=== PATIENT | female | born 1995 | race Caucasian/White ===

== ENCOUNTER 2018-11-21 17:40 | Emergency (ER) | payer OTHER, BC ==
--- NOTE | 2018-11-21 19:11 | EDM.PDOC ---
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 She states she was up against a metal fence when the horse reared up and struck her in the mid back either with his chest or his head. This caused her to be propelled into the metal fence and suffered blunt trauma to the upper anterior chest. She continues to have pain in her sternum and right upper ribs and mildly on the left upper ribs. Hurts mildly to take a deep breath. She does not feel subjectively short of breath. She denies any injuries to her head or neck. Denies any significant pain to her back. Denies any abdominal pain nausea or vomiting. Injury occurred in the workplace at about 1630 hrs. today. She states she had the wind knocked out of her and was able to walk away from the horse so as not to be injured again and then did sit down until she could assess how badly she was injured. Onset: Today Onset Date: 11/21/18 Onset Time: 16:30 Duration: Hour(s): Location: Reports: Chest (Upper back upper anterior chest and breast bone.), Back Quality: Reports: Ache Severity: Moderate Improves with: Reports: Rest Worsens with: Reports: Other, Movement Context: Reports: Trauma (Blunt trauma when she was either head butted her struck by the horse his chest and her upper back which propelled her into a metal fence with a bar striking her in the anterior upper chest. It certainly not the wind out of her.). Denies: Activity (Deep breathing makes it somewhat worse), Exercise, Lifting, Sick Contact Associated Symptoms: Reports: Chest Pain. Denies: Confusion, Cough, cough w sputum, Diaphoresis, Fever/Chills, Headaches, Loss of Appetite, Malaise, Nausea/ Vomiting, Rash, Seizure, Shortness of Breath, Syncope, Weakness Treatments CATEGORY ANALYST: Reports: Other (see below) (None.) Chest Pain Score (Numeric/FACES): 3 - Related Data Allergies Allergy/AdvReac Type Severity Reaction Status Date / Time Sulfa (Sulfonamide Allergy Hives Verified 11/21/18 18:12 Antibiotics) Home Meds: Home Meds Escitalopram [Lexapro] 15 mg PO DAILY 11/21/18 [History] Etanercept [Enbrel] 1 injection SQ ASDIRECTED 11/21/18 [History] Hydroxychloroquine [Plaquenil] 200 mg PO DAILY 11/21/18 [History] Norgestimate-Ethinyl Estradiol [Tri-Sprintec Tablet] 1 tab PO ASDIRECTED [History] Past Medical History HEENT History: Reports: Impaired Vision Cardiovascular History: Reports: None Respiratory History: Reports: Bronchitis, Recurrent Gastrointestinal History: Reports: None Genitourinary History: Reports: None GAG WRITER History: Reports: None Musculoskeletal History: Reports: Arthritis, RA Neurological History: Reports: None Psychiatric History: Reports: Depression Endocrine/Metabolic History: Reports: None Hematologic History: Reports: None Immunologic History: Reports: Immunosuppression Oncologic (Cancer) History: Reports: None Dermatologic History: Reports: None - Infectious Disease History Infectious Disease History: Reports: None - Past Surgical History HEENT Surgical History: Reports: None Social & Family History - Family History Family Medical History: Noncontributory - Tobacco Use Smoking Status *Q: Never Smoker - Caffeine Use Caffeine Use: Reports: Tea - Recreational Drug Use Recreational Drug Use: No - Living Situation & Occupation Living situation: Reports: Single Occupation: Employed Review of Systems - Review of Systems Review Of Systems: See Below Constitutional: Reports: No Symptoms Eyes: Reports: No Symptoms Ears: Reports: No Symptoms Nose: Reports: No Symptoms Mouth/Throat: Reports: No Symptoms Respiratory: Reports: Other (Anterior segments upper sternal pain and bilateral pain in her upper ribs both right and left side perhaps slightly worse on the right side as compared to the left. Some very mild pain in her upper thoracic spine). Denies: Shortness of Breath, Wheezing, Pleuritic Chest Pain, Cough, Sputum Cardiovascular: Reports: No Symptoms GI/Abdominal: Reports: No Symptoms Genitourinary: Reports: No Symptoms Musculoskeletal: Reports: Other (Patient has rheumatoid arthritis and is currently on Enbrel and Plaquenil.) Skin: Reports: No Symptoms Neurological: Reports: No Symptoms Psychiatric: Reports: No Symptoms ED EXAM, GENERAL - Physical Exam Exam: See Below Exam Limited By: No Limitations General Appearance: Alert, WD/WN, No Apparent Distress, Other (Vital signs show afebrile at 36.5. Pulse 58 in sinus. Respiratory to 16. BP 06/25/78 with a pulse ox of 100% on room air.) Throat/Mouth: Normal Inspection, Normal Lips, Normal Teeth, Normal Oropharynx, Other Head: Atraumatic, Normocephalic Neck: Normal Inspection, Supple, Non-Tender, Full Range of Motion. No: Lymphadenopathy (L), Lymphadenopathy (R) Respiratory/Chest: No Respiratory Distress, Lungs Clear, Normal Breath Sounds, No Accessory Muscle Use, Other ( is very tender to palpation manubrial sternal joint of the) Cardiovascular: Normal Peripheral Pulses ( sternum and upper ribs 2-5 bilaterally. There are no obvious contusions abrasions or ecchymoses at this time. Ankush is equal bilaterally with no respiratory distress.), Regular Rate, Rhythm, No Edema, No Gallop, No Murmur, No Rub Peripheral Pulses: 3+: Carotid (L), Carotid (R), Radial (L), Radial (R), Posterior Tibial (L), Posterior Tibial (R), Dorsalis Pedis (L), Dorsalis Pedis ( R) GI/Abdominal: Normal Bowel Sounds, Soft, Non-Tender, No Organomegaly, No Abnormal Bruit, No Mass, Pelvis Stable Back Exam: Normal Inspection, Full Range of Motion, Vertebral Tenderness (Very minimal tenderness of the upper thoracic vertebra for 5 and 6 with no malalignment or contusions abrasions to the back.). No: CVA Tenderness (L), CVA Tenderness (R) Extremities: Normal Inspection, Normal Range of Motion, Non-Tender Neurological: Alert, Oriented, CN II-XII Intact, Normal Cognition, Normal Gait Psychiatric: Normal Affect, Normal Mood Skin Exam: Warm, Dry, Intact, Normal Color, No Rash Course - Vital Signs Last Recorded V/S: Last Vital Signs Temp 36.5 C 11/21/18 18:16 Pulse 58 L 11/21/18 18:16 Resp 16 11/21/18 18:16 BP 113/79 11/21/18 18:16 Pulse Ox 100 11/21/18 18:16 - Orders/Labs/Meds Labs: Laboratory Tests 11/21/18 11/21/18 Range/Units 18:26 18:28 Urine Color Yellow (Yellow) Urine Appearance Clear (Clear) Urine pH 6.0 (5.0-8.0) Ur Specific [place] 1.020 (1.005-1.030) Urine Protein Negative (Negative) Urine Glucose (UA) Negative (Negative) Urine Ketones Negative (Negative) Urine Occult Blood Negative (Negative) Urine Nitrite Negative (Negative) Urine Bilirubin Negative (Negative) Urine Urobilinogen 0.2 (0.2-1.0) Ur Leukocyte Esterase Trace H (Negative) Urine RBC 0-5 (0-5) /hpf Urine WBC Not seen (0-5) /hpf Ur Squamous Epith Cells 10-20 H (0-5) /hpf Urine Bacteria Not seen (FEW) /hpf Urine Mucus Not seen (FEW) /hpf Urine HCG, Qual Negative (NEGATIVE) - Radiology Interpretation Free Text/Narrative:: 23-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 She states a horse that she was working with [employer] up and she turned up against a metal fence and the horse struck her in the upper and mid back either with her head or chest. This propelled her into the fence which had a metal bar going across the upper aspect. It did not the wind out of her she was able to stagger away from the horse and then went down to the ground as she had the wind knocked out of her. She went to the [place] [facility] and was advised to come to the hospital for further evaluation as she was going to need x-rays or imaging. Examination reveals pain across the upper anterior chest particularly ribs 2-5 bilaterally and particularly in the mid aspect of the sternum over the manubrial sternal joint. No injuries identified to her thoracic spine although mild tenderness over the spinous processes of T4-T5 and T6 identified on exam without abrasions or contusions. No injuries to the lower thorax no subcutaneous emphysema. Good good air entry to both lung pena benign abdomen. Triage nurse to send a urine for testing although the patient is on control. Will be to CT her chest without contrast. This is so that I can see her sternum adequately. - Re-Assessments/Exams Free Text/Narrative Re-Assessment/Exam: 11/21/18 19;55: CT of the chest reveals multiple lymph nodes seen within both axillary regions which are felt to be within normal limits. Small amount of soft tissue density is seen within the superior mediastinum most likely representing residual thymic tissue. No adenopathy is seen within the mediastinum. Very slight atherosclerotic Desiccation is seen within the thoracic aorta. Lungs show no acute parenchymal changes. There is no pneumothorax or pleural effusion. There is a small nodule being seen within the right upper lung measuring 3.4 mm. Second small subpleural nodule noted within the right lung base measuring 3.8 mm in size. Bone window settings were reviewed which shows no discrete rib fractures or obvious sternal fractures. Overall my assessment I identified a undisplaced hairline fracture in the manubrium of the sternum. Is exactly where her pain is localized to. No abnormalities were detected on visualization of the thoracic spine patient reassured that she appears to have suffered a significant contusion to the sternum and likely a hairline undisplaced fracture of the manubrium. She will try to go to work although this is going to be more painful over the next couple of days particular with pushing, pulling, lifting activities. She didn't want anything for pain and will use Motrin as needed. Follow-up as needed. Of note in regards to the pulmonary nodule she is a nonsmoker and it may be related to her connective tissue disorder. Departure - Departure Time of Disposition: 19:51 Disposition: Home, Self-Care 01 Condition: Fair Clinical Impression: Blunt trauma to chest Qualifiers: Encounter type: initial encounter Qualified Code(s): S29.8XXA - Other specified injuries of thorax, initial encounter Fracture, sternum closed Qualifiers: Encounter type: initial encounter Sternal location: manubrium Qualified Code(s) : S22.21XA - Fracture of manubrium, initial encounter for closed fracture Contusion of chest wall Qualifiers: Encounter type: initial encounter Laterality: unspecified laterality Qualified Code(s): S20.219A - Contusion of unspecified front wall of thorax, initial encounter - Discharge Information *PRESCRIPTION DRUG MONITORING PROGRAM REVIEWED*: No *COPY OF PRESCRIPTION DRUG MONITORING REPORT IN PATIENT TERRANCE: No Instructions: Contusion, [id number], Sternal Fracture Referrals: Georgina Valeznuela GRAINING PRESS OPERATOR [Primary Care Provider] - Forms: ED Department Discharge, ED Return to Work/School Form Additional Instructions: Evaluation in the emergency room today in regards to work related injury. 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 This crushed you up against a metal fence and you therefore suffered blunt trauma to the anterior upper chest. Injury occurred about 1600 hrs. today. Examination reveals tenderness over the upper sternum and upper ribs bilaterally. No apparent injuries to the upper back neck or lower abdomen identified. CT chest was carried out and reveals a undisplaced hairline fracture of the upper aspect of your sternum her breast bone. No fractured ribs were identified. No injuries to the underlying lung were identified such as a pneumothorax or pulmonary contusion or bruised lung. Expect the sternum to be very tender for the next 14 days and then slowly improve over the next 6 weeks back to normal. He will have problems pushing and pulling due to use of the upper chest muscles. You may return to work tomorrow as long as you can protect this area from a lot of heavy lifting pushing or pulling activities for the next 3-4 weeks. Motrin 600 mg every 6 hours needed for pain relief.
--- NOTE | 2018-11-21 19:54 | CT ---
CT chest Technique: Multiple axial sections were obtained from above the lung apices inferiorly through the lung bases. Intravenous contrast not utilized. Comparison: No prior chest imaging. Findings: Multiple lymph nodes are seen within both axillary regions which are most likely within normal limits. Small amount of soft tissue density is seen within the superior mediastinum most likely representing residual thymic tissue. No adenopathy is seen within the mediastinum. Very slight atherosclerotic calcification is seen within the thoracic aorta. Lungs show no acute parenchymal change. There is a small nodule being seen within the right upper lung measuring about 3.4 mm. Second small subpleural nodule is noted within the right lung base measuring 3.8 mm in size. No additional nodule is seen within the chest. No pleural effusions or pneumothorax are seen. Bone window settings were reviewed which shows no discrete rib fracture. Impression: 1. 2 small nodules within the chest. If patient is a smoker, recommend repeat chest CT in one year. If patient is not a smoker, these can be ignored. 2. Other findings which are believed to be incidental as noted above. 3. Nothing acute is appreciated on noncontrast CT study of the chest. Diagnostic code #3
== END 2018-11-21 20:09 | disposition home or self-care (01) ==
LOC: JD.ED 17:40
DX: S22.21XA Fracture of manubrium, initial encounter for closed fracture (principal); Z88.2 Allergy status to sulfonamides; Z79.899 Other long term (current) drug therapy; F32.9 Major depressive disorder, single episode, unspecified; W55.12XA Struck by horse, initial encounter
CPT/HCPCS: 71250; 71250-26; 81001; 81025; 99284; 99284-25

== ENCOUNTER 2019-10-29 10:24 | Inpatient (IN) | payer BC ==
[~2019-10-29 10:24] MED LIST: Bupivacaine 0.25% 10 ML SDV ONE
[2019-10-29] MEDS ORDERED: Sodium Chloride 0.9% 10 ML Syringe FLUSH PRN (10:55)
[2019-10-29] MEDS ORDERED: Ondansetron 4 MG/2 ML SDV IVPUSH PRN (10:55)
[2019-10-29] MEDS ORDERED: Nalbuphine 10 MG/ML Syringe IVPUSH PRN (10:55)
[2019-10-29] MEDS ORDERED: Oxytocin/Lactated Ringers 10 UNIT/1,000 ML BAG IV SCH ×2 (11:00)
[2019-10-29] MEDS ORDERED: fentaNYL 100 MCG/2 ML SDV EPIDUR PRN (11:57)
[2019-10-29] MEDS ORDERED: Bupivacaine/fentaNYL/NS 100 ML Bag EPIDUR PRN (11:57)
[2019-10-29] MEDS ORDERED: diphenhydrAMINE 50 MG/ML SDV IVPUSH PRN (11:57)
[2019-10-29] MEDS ORDERED: ePHEDrine 50 MG/ML SDV IVPUSH PRN (11:57)
--- NOTE | 2019-10-29 12:12 | PCM.LDHP ---
L&D History of Present Illness - General Date of Service: 10/29/19 Admit Problem/Dx: Patient Status Order with Admit Dx/Problem 10/29/19 10:56 Patient Status [ADT] Routine Admission Diagnosis/Problem Admission Diagnosis/Problem 10/29/19 12:02 Shayy is a 24-year-old 1 para 0 white female who is presently at 38-3/7 weeks gestational age with an MARAH of 11/09/2019 who is admitted to labor and delivery with gross SROM in early labor. Source of Information: Patient History Limitations: Reports: No Limitations - History of Present Illness Introduction:: Shayy is a 24-year-old 1 para 0 white female who is presently at 38-3/7 weeks gestational age with an MARAH of 11/09/2019 who is admitted to labor and delivery with gross SROM in early labor.She reports the membranes ruptured this morning at approximately 0750 hrs. She came in to the clinic and saw Dipti martinez nurse practitioner and was diagnosed as having gross rupture membranes. She is not reporting any contractions at this time. Baby has been active. TRAFFIC ANALYSIS TECHNICIAN history: The patient is a 1 para 0. MARAH is 11/09/2019 as based upon an ultrasound done at 5 and 67 weeks gestational age is supported by 3 other ultrasounds done during the course of the . Patient had menarche at approximately age 12. Cycles every month. No control at the time of conception. Her LMP was 02/07/2019. She denies any STI's or abnormal Pap smears. course. Patient was first seen in very early on at 5 weeks and 6 days on 03/15/2019. Ultrasound was performed at that time to confirm viability and intrauterine location of the . Her MARAH was set at 2019. Patient seen on a very regular basis throughout the . Her weight gain was from 189-212.4 pounds for approximately a T3 pound increase. Her blood pressures have been normal. Her fundal height growth has been appropriate. She is group B strep negative. She has a history of MRSA infection but was MRSA culture negative end MRSA by PCR negative as evaluated in September 2019. She is on rheumatology medications including Enbrel for suppression. She is done well with these and has been receiving care from her plum packer during the course of . She has a history of depression. She was influenza B positive and was treated with Tamiflu in August 2019. She plans to breast-feed. laboratory testing shows her blood to be O+ with a negative MRI screening. First hemoglobin was 12.7 g/dL and platelets are 239,000. She is rubella immune. RPR is nonreactive. Urine culture was negative. Hepatitis B surface antigen and HIV assays were both negative. Her gonorrhea was negative. Second trimester hemoglobin was 11.9 g/dL and platelets were 252, 000. She had a normal diabetic screen at 101. Her group B strep screen was negative. Allergies: Sulfur which causes hives. Medications: 1. Hydroxychloroquine sulfate 200 mg by mouth daily 2. Tylenol 325 mg when necessary every 4 hours 3. Enbrel sure clinic 50 mg/mL subcutaneous 4. Folic acid 1 mg daily 5. vitamins 1 daily. Past medical history: 1. Rheumatoid arthritis 2. Abnormal Pap smear was normal on repeat. 3. Self allergies Past surgical history: 1. Surgery for deviated septum. 2. Cyst removed from her shoulder. Family history: One sister had a stillbirth at 20 weeks. Mother is alive and well as is her father. 3 brothers are alive and well. One sister is alive and well. Maternal grandmother is secondary to primary biliary cirrhosis. Paternal grandfather at age 87causes unknown. Paternal grandmother at age 100 from natural causes. Paternal grandfather at age 87. Cause unknown. There are no bleeding disorders, blood clotting disorders, history of cancer, anesthesia or asthma or -related issues noted in the family. Social history: Patient is . She lives in [place], [place]. She is a [employer]. She is a college graduate. Her 's name is Savage. She does not use any significant loss of alcohol, drugs or tobacco. Review of systems: In general patient has no complaints. Skin: Negative Lungs: No infectious symptoms or shortness of breath Cardiovascular: No chest pain or exercise intolerance Breasts: No lumps, changes in size, pain, dimpling, discharge or axillary or supraclavicular concerns. Changes associated with GI: Negative : Negative other than rupture membranes. Baby has been active. Musculoskeletal: Negative Neurological: Negative In general the patient is well-developed, well-nourished, pleasant female of stated age in no acute distress. On last evaluation in clinic blood pressure is 118/82. Weight was 212.4 pounds with a pregravid weight 189 pounds. Height is 5 feet 7. Prepregnancy body mass index is 30.5. Skin is warm dry without lesions. HEENT, neck and back within normal limits. Lungs are clear with good breath sounds in all lung pena. Cardiovascular exam shows regular and rhythm without murmurs. Breasts exam deferred having been done the first visit and found to be normal is not needed at this time. Abdomen is gravid with a fundal height of 38 cm. Baby in vertex presentation by Dipti Del Cid's Venkat maneuver evaluation.. Genital per digital exam done in clinic show cervix is 1 cm dilated 90% effaced , soft, posterior, -3 station. Baby in vertex presentation.. Extremities and neurological exam are grossly within normal limits. - Related Data Allergies/Adverse Reactions: Allergies Allergy/AdvReac Type Severity Reaction Status Date / Time Sulfa (Sulfonamide Allergy Hives Verified 11/21/18 18:12 Antibiotics) Home Medications: Home Meds Escitalopram [Lexapro] 15 mg PO DAILY 11/21/18 [History] Etanercept [Enbrel] 1 injection SQ ASDIRECTED 11/21/18 [History] Hydroxychloroquine [Plaquenil] 200 mg PO DAILY 11/21/18 [History] norgestimate-ethinyl estradioL [Tri-Sprintec Tablet] 1 tab PO ASDIRECTED [History] Past Medical History HEENT History: Reports: Impaired Vision Cardiovascular History: Reports: None Respiratory History: Reports: Bronchitis, Recurrent Gastrointestinal History: Reports: None Genitourinary History: Reports: None TRAFFIC ANALYSIS TECHNICIAN History: Reports: None Musculoskeletal History: Reports: Arthritis, RA Neurological History: Reports: None Psychiatric History: Reports: Depression Endocrine/Metabolic History: Reports: None Hematologic History: Reports: None Immunologic History: Reports: Immunosuppression Other Immunologic History: RA Oncologic (Cancer) History: Reports: None Dermatologic History: Reports: None - Infectious Disease History Infectious Disease History: Reports: None - Past Surgical History HEENT Surgical History: Reports: None Social & Family History - Family History Family Medical History: Noncontributory - Caffeine Use Caffeine Use: Reports: Tea - Living Situation & Occupation Living situation: Reports: Single Occupation: Employed H&P Review of Systems - Review of Systems: Review Of Systems: See Below L&D Exam - Exam Exam: See Below - Vital Signs Weight: 95.254 kg - Patient Data Lab Results Last 24 hrs: Laboratory Results - last 24 hr 10/29/19 Range/Units 11:10 WBC 8.55 (3.98-10.04) K/mm3 RBC 4.21 (3.98-5.22) M/mm3 Hgb 12.8 (11.2-15.7) gm/dl Hct 38.1 (34.1-44.9) % MCV 90.5 (79.4-94.8) fl MCH 30.4 (25.6-32.2) pg MCHC 33.6 (32.2-35.5) g/dl RDW Std Deviation 43.4 (36.4-46.3) fL Plt Count 248 (182-369) K/mm3 MPV 10.4 (9.4-12.3) fl Neut % (Auto) 72.2 H (34.0-71.1) % Lymph % (Auto) 16.7 L (19.3-51.7) % [place] % (Auto) 10.3 (4.7-12.5) % Eos % (Auto) 0.2 L (0.7-5.8) Baso % (Auto) 0.1 (0.1-1.2) % Neut # (Auto) 6.17 H (1.56-6.13) K/mm3 Lymph # (Auto) 1.43 (1.18-3.74) K/mm3 [place] # (Auto) 0.88 H (0.24-0.36) K/mm3 Eos # (Auto) 0.02 L (0.04-0.36) K/mm3 Baso # (Auto) 0.01 (0.01-0.08) K/mm3 Result Diagrams: 10/29/19 11:10 Problem List Initiated/Reviewed/Updated: Yes Orders Last 24hrs: Active Orders 24 hr Category Date Time Status Patient Status [ADT] Routine ADT 10/29/19 10:56 Active Activity as Tolerated [RC] PFP Care 10/29/19 10:55 Active Communication Order [RC] ASDIRECTED Care 10/29/19 10:55 Active Heart Tones [RC] ASDIRECTED Care 10/29/19 10:56 Active Non Stress Test [RC] PER UNIT ROUTINE Care 10/29/19 10:55 Active Notify Provider [RC] ASDIRECTED Care 10/29/19 11:57 Active Notify Provider [RC] PFP Care 10/29/19 10:55 Active Notify Provider [RC] PRN Care 10/29/19 10:55 Active Peripheral IV Care [RC] . DIRECTED Care 10/29/19 10:56 Active Pump Management, Intrathecal [RC] ASDIRECTED Care 10/29/19 10:57 Active Urinary Catheter Assessment [RC] ASDIRECTED Care 10/29/19 10:55 Active Vital Signs [RC] PER UNIT ROUTINE Care 10/29/19 10:55 Active Regular Diet [DIET] Diet 10/29/19 Breakfast Active RAPID PLASMA REAGIN,RPR [CHEM] Routine Lab 10/29/19 11:10 Received TYPE AND SCREEN [BBK] Stat Lab 10/29/19 11:10 Received Bupivacaine/fentaNYL/NS [fentaNYL/Bupivacaine/NS 2 MCG- Med 10/29/19 11:57 Active 0.125% 100 ML] 100 ml EPIDUR ASDIRECTED PRN Lactated Ringers [Ringers, Lactated] 1,000 ml Med 10/29/19 11:00 Active IV ASDIRECTED Lidocaine 1% [Xylocaine 1%] Med 10/29/19 18:00 Once 50 ml INJECT ONETIME ONE Nalbuphine [Nubain] Med 10/29/19 10:55 Active 10 mg IVPUSH Q2H PRN Ondansetron [Zofran] Med 10/29/19 10:55 Active 4 mg IVPUSH Q4H PRN Oxytocin/Lactated Ringers [Pitocin in LR 10 Units/1,000 Med 10/29/19 11:00 Active ML] 10 unit in 1,000 ml IV .CONTINUOUS Oxytocin/Lactated Ringers [Pitocin in LR 10 Units/1,000 Med 10/29/19 11:00 Active ML] 10 unit in 1,000 ml IV TITRATE Sodium Chloride 0.9% [Saline Flush] Med 10/29/19 10:55 Active 10 ml FLUSH ASDIRECTED PRN diphenhydrAMINE [Benadryl] Med 10/29/19 11:57 Active 25 mg IVPUSH Q6H PRN ePHEDrine [ePHEDrine sulfate] Med 10/29/19 11:57 Active 5 mg IVPUSH ASDIRECTED PRN fentaNYL [Sublimaze] Med 10/29/19 11:57 Active 100 mcg EPIDUR Q3H PRN Electronic Heart Tones Ext w TOCO [WOMSER] Oth 10/29/19 10:55 Ordered Routine Electronic Heart Tones Internal [WOMSER] Per Unit Oth 10/29/19 10:55 Ordered Routine Peripheral IV Insertion Adult [OM.PC] Routine Oth 10/29/19 10:55 Ordered Resuscitation Status Routine Resus Stat 10/29/19 10:55 Ordered Medication Orders Diphenhydramine HCl (Benadryl) 25 mg IVPUSH Q6H PRN PRN Reason: pruritis Ephedrine Sulfate (Ephedrine Sulfate) 5 mg IVPUSH ASDIRECTED PRN PRN Reason: Hypotension Fentanyl (Sublimaze) 100 mcg EPIDUR Q3H PRN PRN Reason: Pain Fentanyl/Bupivacaine HCl (Fentanyl/Bupivacaine/Ns 2 Mcg-0.125% 100 Ml) 100 ml EPIDUR ASDIRECTED PRN PRN Reason: Pain Lactated Ringer's (Ringers, Lactated) 1,000 mls @ 100 mls/hr IV ASDIRECTED BRENNEN Oxytocin/Lactated Ringer's (Pitocin In Lr 10 Units/1,000 Ml) 10 unit in 1,000 mls @ 12 mls/hr IV TITRATE BRENNEN; Protocol Oxytocin/Lactated Ringer's (Pitocin In Lr 10 Units/1,000 Ml) 10 unit in 1,000 mls @ 100 mls/hr IV .CONTINUOUS BRENNEN; Protocol Lidocaine HCl (Xylocaine 1%) 50 ml INJECT ONETIME ONE Stop: 10/29/19 18:01 Nalbuphine HCl (Nubain) 10 mg IVPUSH Q2H PRN PRN Reason: Pain Ondansetron HCl (Zofran) 4 mg IVPUSH Q4H PRN PRN Reason: Nausea/Vomiting Sodium Chloride (Saline Flush) 10 ml FLUSH ASDIRECTED PRN PRN Reason: Keep Vein Open Assessment/Plan Comment:: 1. 38-3/7 week intrauterine with with an MARAH of 11/09/2019 admitted with gross SROM and early labor. 2. Group B strep screen negative. 3. Patient desires epidural in labor and delivery 4. Patient has had MRSA in the past but has been found to be MRSA-negative evaluation done in clinic in October 2019 5. Patient plans to breast-feed 6. Risk factors for the include history of rheumatoid arthritis on medications 7. Patient's received her flu immunization on 04/17/2019. She did have influenza B and was treated with Tamiflu during this pregnancyMar2019 8. Patient received Tdap during this . She is rubella immune. Plan: 1. Admit to labor and delivery as an observation patient. Anticipate normal spontaneous vaginal delivery 2. If patient not ajay within the course of the next 3 hours will offer to the patient augmentation with Pitocin 3. Support breast-feeding decision 4. Epidural when necessary per patient desire 5. CBC and RPR upon admission per protocol.
--- NOTE | 2019-10-29 13:52 | PCM.PREANE ---
Preanesthetic Assessment - Procedure Proposed Procedure: james - Anesthesia/Transfusion/Family Hx Anesthesia History: Prior Anesthesia Without Reaction Family History of Anesthesia Reaction: No Transfusion History: No Prior Transfusion(s) - Review of Systems General: No Symptoms Pulmonary: No Symptoms Cardiovascular: No Symptoms Gastrointestinal: No Symptoms Neurological: No Symptoms Other: Reports: None - Physical Assessment Vital Signs: Last Vital Signs Temp 98.3 F 10/29/19 10:55 Pulse 88 10/29/19 10:55 Resp 15 10/29/19 10:55 BP 129/75 10/29/19 10:55 Pulse Ox Height: 5 ft 7 in Weight: 95.254 kg ASA Class: 2 Mental Status: Alert & Oriented x3 Airway Class: Mallampati = 1 Dentition: Reports: Normal Dentition Thyro-Mental Finger Breadths: 3 Mouth Opening Finger Breadths: 3 ROM/Head Extension: Full Lungs: Clear to Auscultation, Normal Respiratory Effort Cardiovascular: Regular Rate, Regular Rhythm, No Murmurs - Lab Values: Laboratory Last Values WBC 8.55 K/mm3 (3.98-10.04) 10/29/19 11:10 RBC 4.21 M/mm3 (3.98-5.22) 10/29/19 11:10 Hgb 12.8 gm/dl (11.2-15.7) 10/29/19 11:10 Hct 38.1 % (34.1-44.9) 10/29/19 11:10 MCV 90.5 fl (79.4-94.8) 10/29/19 11:10 MCH 30.4 pg (25.6-32.2) 10/29/19 11:10 MCHC 33.6 g/dl (32.2-35.5) 10/29/19 11:10 RDW Std Deviation 43.4 fL (36.4-46.3) 10/29/19 11:10 Plt Count 248 K/mm3 (182-369) 10/29/19 11:10 MPV 10.4 fl (9.4-12.3) 10/29/19 11:10 Neut % (Auto) 72.2 % (34.0-71.1) H 10/29/19 11:10 Lymph % (Auto) 16.7 % (19.3-51.7) L 10/29/19 11:10 [place] % (Auto) 10.3 % (4.7-12.5) 10/29/19 11:10 Eos % (Auto) 0.2 (0.7-5.8) L 10/29/19 11:10 Baso % (Auto) 0.1 % (0.1-1.2) 10/29/19 11:10 Neut # (Auto) 6.17 K/mm3 (1.56-6.13) H 10/29/19 11:10 Lymph # (Auto) 1.43 K/mm3 (1.18-3.74) 10/29/19 11:10 [place] # (Auto) 0.88 K/mm3 (0.24-0.36) H 10/29/19 11:10 Eos # (Auto) 0.02 K/mm3 (0.04-0.36) L 10/29/19 11:10 Baso # (Auto) 0.01 K/mm3 (0.01-0.08) 10/29/19 11:10 Blood Type O POSITIVE 10/29/19 11:10 Gel Antibody Screen Negative 10/29/19 11:10 - Allergies Allergies/Adverse Reactions: Allergies Allergy/AdvReac Type Severity Reaction Status Date / Time Sulfa (Sulfonamide Allergy Hives Verified 11/21/18 18:12 Antibiotics) - Blood Blood Available: No - Acknowledgements Anesthesia Type Planned: Epidural Pt an Appropriate Candidate for the Planned Anesthesia: Yes Alternatives and Risks of Anesthesia Discussed w Pt/Guardian: Yes Pt/Guardian Understands and Agrees with Anesthesia Plan: Yes PreAnesthesia Questionnaire HEENT History: Reports: Impaired Vision Cardiovascular History: Reports: None Respiratory History: Reports: Bronchitis, Recurrent Gastrointestinal History: Reports: None Genitourinary History: Reports: None INTERACTIVE MEDIA PROJECT MANAGER History: Reports: None : 1 (38 weejs) Para: 0 Musculoskeletal History: Reports: Arthritis, RA Neurological History: Reports: None Psychiatric History: Reports: Depression Endocrine/Metabolic History: Reports: None Hematologic History: Reports: None Immunologic History: Reports: Immunosuppression Other Immunologic History: RA Oncologic (Cancer) History: Reports: None Dermatologic History: Reports: None - Infectious Disease History Infectious Disease History: Reports: None - Past Surgical History HEENT Surgical History: Reports: None, Naso-Sinus Surgery Female Surgical History: Reports: Other (See Below) Other Female Surgeries/Procedures: cyst removed from shoulder - SUBSTANCE USE Smoking Status *Q: Never Smoker Tobacco Use Within Last Twelve Months: No Second Hand Smoke Exposure: No Days Per Week of Alcohol Use: 0 Recreational Drug Use History: No - HOME MEDS Home Medications: Home Meds Etanercept [Enbrel] 1 injection SQ ASDIRECTED 11/21/18 [History] Hydroxychloroquine [Plaquenil] 200 mg PO DAILY 11/21/18 [History] Ferrous Sulfate [Iron] 325 mg PO 10/29/19 [History] 95/Iron Fum/Folic/Dha [ + Dha Combo Pack] 1 each PO DAILY 10/28 [History] - CURRENT (IN HOUSE) MEDS Current Meds: Current Medications Diphenhydramine HCl (Benadryl) 25 mg IVPUSH Q6H PRN PRN Reason: pruritis Ephedrine Sulfate (Ephedrine Sulfate) 5 mg IVPUSH ASDIRECTED PRN PRN Reason: Hypotension Fentanyl (Sublimaze) 100 mcg EPIDUR Q3H PRN PRN Reason: Pain Fentanyl/Bupivacaine HCl (Fentanyl/Bupivacaine/Ns 2 Mcg-0.125% 100 Ml) 100 ml EPIDUR ASDIRECTED PRN PRN Reason: Pain Lactated Ringer's (Ringers, Lactated) 1,000 mls @ 100 mls/hr IV ASDIRECTED BRENNEN Oxytocin/Lactated Ringer's (Pitocin In Lr 10 Units/1,000 Ml) 10 unit in 1,000 mls @ 12 mls/hr IV TITRATE BRENNEN; Protocol Oxytocin/Lactated Ringer's (Pitocin In Lr 10 Units/1,000 Ml) 10 unit in 1,000 mls @ 100 mls/hr IV .CONTINUOUS BRENNEN; Protocol Lidocaine HCl (Xylocaine 1%) 50 ml INJECT ONETIME ONE Stop: 10/29/19 18:01 Nalbuphine HCl (Nubain) 10 mg IVPUSH Q2H PRN PRN Reason: Pain Ondansetron HCl (Zofran) 4 mg IVPUSH Q4H PRN PRN Reason: Nausea/Vomiting Sodium Chloride (Saline Flush) 10 ml FLUSH ASDIRECTED PRN PRN Reason: Keep Vein Open
[2019-10-29] MEDS: Lactated Ringers 1,000 ML IV SCH ×2 (14:25→18:43)
[2019-10-29] MEDS ORDERED: Lidocaine 1% 50 ML MDV INJECT ONE (18:00)
[2019-10-29] MEDS ORDERED: ETANERCEPT SQ SCH (23:30)
--- NOTE | 2019-10-29 23:34 | PCM.SN.2 ---
- Free Text/Narrative Note: Delivery note: Shayy is a 24-year-old 1 para 0 white female who is presently at 38-3/7 weeks gestational age with an MARAH of 11/09/2019 who is admitted to labor and delivery with gross SROM in early labor.Patient slowly progressed into a very mild active labor over the first 3-4 hours after SROM. Pitocin augmentation was undertaken and eventually an epidural was used for labor analgesia. She made steady progress and at approximately 2220 hrs. patient became completely dilated. A 2303 hours on 10/29/2019 she delivered a viable, rizvi, female infant named Elroy Funez in a direct anterior position.. The baby weighed 3110 g (6 pounds 13.7 ounces), had Apgars of 8 and 9 and a length of 20.0 inches. Noted was a Nuchal cord 1 which was moderately tight and was reduced over the baby's body. After delivery the baby was placed on mom's abdomen and nose mouth were bulb suctioned and the baby was dried with a warm blanket. The umbilical cord was allowed to pulsate for approximately 2-3 minutes then was clamped 2 and cut by the baby's father Bill. Immediately after delivery Pitocin was increased to 500 mL per hour with routine solution per protocol. This to facilitate increase uterine tone and decreased likelihood of bleeding. Umbilical cord blood was obtained. The umbilical cord had 3 vessels. The second- degree perineal laceration was repaired with 3-0 Monocryl in a routine fashion. Patient tolerated this well and labor epidural analgesia was used for perineal anesthesia. The placenta delivered in a Ricketts presentation at 2313 hrs., appeared intact and complete and was discarded per patient desire. Estimated blood loss was 200 mL. Patient plans to breast-feed. Condition: Good.
[2019-10-30] MEDS ORDERED: Witch Hazel Medicated Pads 40/Jar TOP PRN (00:26)
[2019-10-30] MEDS ORDERED: Acetaminophen 325 MG Tab PO PRN (00:26)
[2019-10-30] MEDS ORDERED: Benzocaine/Menthol 20%-0.5% Spray 56 GM Canister TOP PRN (00:26)
[2019-10-30] MEDS ORDERED: Docusate Sodium 100 MG Cap PO PRN (00:26)
[2019-10-30] MEDS ORDERED: Docusate Sodium 100 MG Cap ONE (00:33)
[2019-10-30] MEDS ORDERED: Witch Hazel Medicated Pads 40/Jar TOP ONE (00:33)
[2019-10-30] MEDS ORDERED: Ibuprofen 600 MG Tab ONE (00:33)
[2019-10-30] MEDS ORDERED: Benzocaine/Menthol 20%-0.5% Spray 56 GM Canister TOP ONE (00:33)
[2019-10-30] MEDS: Ibuprofen 600 MG Tab PO PRN ×4 (00:39→21:24)
--- NOTE | 2019-10-30 07:16 | PCM48HPAN ---
Post Anesthesia Note - EVALUATION WITHIN 48HRS OF ANESTHETIC Vital Signs in Normal Range: Yes Patient Participated in Evaluation: Yes Respiratory Function Stable: Yes Airway Patent: Yes Cardiovascular Function Stable: Yes Hydration Status Stable: Yes Pain Control Satisfactory: Yes Nausea and Vomiting Control Satisfactory: Yes Mental Status Recovered: Yes Vital Signs: Last Vital Signs Temp 37.4 C 10/30/19 04:04 Pulse 73 10/30/19 04:04 Resp 14 10/30/19 04:04 BP 133/70 10/30/19 04:04 Pulse Ox 98 10/30/19 04:04
--- NOTE | 2019-10-30 07:39 | PCM.SN.2 ---
- Free Text/Narrative Note: note: day #1 Patient is doing well in the period. Minimal lochia, voiding well, ambulated without problems. Nursing without concerns. Patient is afebrile, vital signs are stable Abdomen is flat, soft, uterus is below the umbilicus and is firm and nontender. Legs are nontender. Assessment: recovery going well. Plan: Routine care. Patient be discharged home within the next 24-48 hours.
[2019-10-30] MEDS ORDERED: Hydroxychloroquine 200 MG Tab PO SCH (09:00)
[2019-10-30] MEDS: Prenatal Multivitamin with Calcium/Folic Acid/Iron Tab PO SCH (09:01)
[2019-10-30] MEDS: HYDROXYCHLOROQUINE 200 MG PO SCH (09:01)
--- NOTE | 2019-10-31 06:15 | PCM.DCSUM1 ---
Discharge Summary - Hospital Course Free Text/Narrative:: Shayy is a 24-year-old 1 para 0 white female who was presently at 38-3/7 weeks gestational age with an MARAH of 11/09/2019 who is admitted to labor and delivery on 10/29/2019 with gross SROM in early labor. She slowly progressed into a very mild active labor over the first 3-4 hours after SROM. Pitocin augmentation was undertaken and eventually an epidural was used for labor analgesia. She made steady progress and at approximately 2220 hrs. patient became completely dilated. A 2303 hours on 10/29/2019 she delivered a viable, rizvi, female infant named Elroy Funez in a direct anterior position.. The baby weighed 3110 g (6 pounds 13.7 ounces), had Apgars of 8 and 9 and a length of 20.0 inches. Noted was a Nuchal cord 1 which was moderately tight and was reduced over the baby's body. After delivery the baby was placed on mom's abdomen and nose mouth were bulb suctioned and the baby was dried with a warm blanket. The umbilical cord was allowed to pulsate for approximately 2-3 minutes then was clamped 2 and cut by the baby's father Bill. Immediately after delivery Pitocin was increased to 500 mL per hour with routine solution per protocol. This to facilitate increase uterine tone and decreased likelihood of bleeding. Umbilical cord blood was obtained. The umbilical cord had 3 vessels. The second- degree perineal laceration was repaired with 3-0 Monocryl in a routine fashion. Patient tolerated this well and labor epidural analgesia was used for perineal anesthesia. The placenta delivered in a Ricketts presentation at 2313 hrs., appeared intact and complete and was discarded per patient desire. Estimated blood loss was 200 mL. Patient plans to breast-feed. patient is doing very well. She is nursing without problems, has minimal lochia. Is voiding without concerns. She is ambulating well. She is desiring discharge home. Condition: Good. - Discharge Data Discharge Date: 10/31/19 Discharge Disposition: Home, Self-Care 01 Condition: Good - Referral to Home Health Primary Care Physician: Mejia Cardoso MD - Patient Instructions Diet: Regular Diet as Tolerated (Nursing diet increased calories and calcium as recommended) Activity: As Tolerated (No intercourse or tampons until bleeding resolves) Driving: May Drive Today Showering/Bathing: May Shower (May take a bath) Notify Provider of: Fever, Increased Pain, Swelling and Redness, Nausea and/or Vomiting - Discharge Plan Home Medications: Home Meds Etanercept [Enbrel Sureclick] 1 injection SQ ASDIRECTED 11/21/18 [History] Hydroxychloroquine [Plaquenil] 400 mg PO DAILY 11/21/18 [History] Ferrous Sulfate [Iron] 325 mg PO 10/29/19 [History] 95/Iron Fum/Folic/Dha [ + Dha Combo Pack] 1 each PO DAILY 10/28 [History] Acetaminophen [Tylenol] 650 mg PO Q4H PRN tablet 10/31/19 [Rx] Ibuprofen [Motrin] 600 mg PO Q4H PRN tablet 10/31/19 [Rx] Referrals: Mejia Cardoso MD [Primary Care Provider] - (Return to clinicDr. [facility]2 weeks.) - Discharge Summary/Plan Comment DC Time >30 min.: No Discharge Summary/Plan Comment: Discharge instructions: 1. Discharge home 2. Diet, activity and follow-up discussed with patient. Recommend nursing diet with increased calories and calcium. 3. Precautions given concern increased pain, bleeding, temperature, signs/ symptoms of DVT/PE. 4. Medications per home medication was printed, discussed with and given to the patient. 5. Return to clinic-Dr. Cardoso[facility] [place] in 2 weeks. Diagnosis: Term -delivered Condition: Good - Patient Data Vitals - Most Recent: Last Vital Signs Temp 36.7 C 10/31/19 04:55 Pulse 79 10/31/19 04:55 Resp 13 10/31/19 04:55 BP 123/72 10/31/19 04:55 Pulse Ox 97 10/31/19 04:55 Weight - Most Recent: 95.254 kg I&O - Last 24 hours: Intake & Output 10/30/19 10/30/19 10/31/19 14:59 22:59 06:59 Intake Total 360 Balance 360 Med Orders - Current: Current Medications Acetaminophen (Tylenol) 650 mg PO Q4H PRN PRN Reason: mild pain or fever Benzocaine/Menthol (Dermoplast Pain Relief [place]) 0 gm TOP ASDIRECTED PRN PRN Reason: Perineal Comfort Measure Last Admin: 10/30/19 00:38 Dose: 1 can Docusate Sodium (Colace) 100 mg PO BID PRN PRN Reason: Constipation Last Admin: 10/30/19 00:38 Dose: 100 mg Hydroxychloroquine Sulfate (Plaquenil) 400 mg PO DAILY [facility] Last Admin: 10/30/19 09:01 Dose: 400 mg Ibuprofen (Motrin) 600 mg PO Q4H PRN PRN Reason: Mild pain or fever Last Admin: 10/30/19 21:24 Dose: 600 mg Prenat Multivit/Accountant Controller/Iron/Folic Ac ( Plus Iron) 1 each PO DAILY [facility] Last Admin: 10/30/19 09:01 Dose: 1 each Witch Odalys (Tucks) 1 pad TOP ASDIRECTED PRN PRN Reason: Perineal Comfort Measure Last Admin: 10/30/19 00:39 Dose: 1 container Discontinued Medications Benzocaine/Menthol (Dermoplast Pain Relief [place]) Confirm Administered Dose 56 gm TOP .[employer] ONE Stop: 10/30/19 00:34 Last Admin: 10/30/19 01:57 Dose: Not Given Bupivacaine HCl (Sensorcaine-Mpf 0.25%) 10 ml .ROUTE .C[employer] A/S-MED ONE Stop: 10/29/19 00:01 Diphenhydramine HCl (Benadryl) 25 mg IVPUSH Q6H PRN PRN Reason: pruritis Docusate Sodium (Colace) Confirm Administered Dose 100 mg .ROUTE .[employer] ONE Stop: 10/30/19 00:34 Last Admin: 10/30/19 01:57 Dose: Not Given Ephedrine Sulfate (Ephedrine Sulfate) 5 mg IVPUSH ASDIRECTED PRN PRN Reason: Hypotension Fentanyl (Sublimaze) 100 mcg EPIDUR Q3H PRN PRN Reason: Pain Last Admin: 10/29/19 18:43 Dose: 100 mcg Fentanyl/Bupivacaine HCl (Fentanyl/Bupivacaine/Ns 2 Mcg-0.125% 100 Ml) 100 ml EPIDUR ASDIRECTED PRN PRN Reason: Pain Last Admin: 10/29/19 18:44 Dose: 100 ml Hydroxychloroquine Sulfate (Plaquenil) 200 mg PO DAILY [facility] Lactated Ringer's (Ringers, Lactated) 1,000 mls @ 100 mls/hr IV ASDIRECTED [facility] Last Admin: 10/29/19 18:43 Dose: 100 mls/hr Oxytocin/Lactated Ringer's (Pitocin In Lr 10 Units/1,000 Ml) 10 unit in 1,000 mls @ 12 mls/hr IV TITRATE BRENNEN; Protocol Last Titration: 10/29/19 23:04 Dose: 999 mls/hr Oxytocin/Lactated Ringer's (Pitocin In Lr 10 Units/1,000 Ml) 10 unit in 1,000 mls @ 100 mls/hr IV .CONTINUOUS BRENNEN; Protocol Last Admin: 10/29/19 23:31 Dose: 999 mls/hr Ibuprofen (Motrin) Confirm Administered Dose 600 mg .ROUTE .STK-MED ONE Stop: 10/30/19 00:34 Last Admin: 10/30/19 01:58 Dose: Not Given Lidocaine HCl (Xylocaine 1%) 50 ml INJECT ONETIME ONE Stop: 10/29/19 18:01 Last Admin: 10/30/19 00:30 Dose: Not Given Nalbuphine HCl (Nubain) 10 mg IVPUSH Q2H PRN PRN Reason: Pain Non-Formulary Medication (Etanercept [Enbrel Sureclick]) 1 injection SQ ASDIRECTED BRENNEN Ondansetron HCl (Zofran) 4 mg IVPUSH Q4H PRN PRN Reason: Nausea/Vomiting Sodium Chloride (Saline Flush) 10 ml FLUSH ASDIRECTED PRN PRN Reason: Keep Vein Open Mia Morrow (Tucks) Confirm Administered Dose 1 pad TOP .STK-MED ONE Stop: 10/30/19 00:34 Last Admin: 10/30/19 01:58 Dose: Not Given
[2019-10-31] MEDS: HYDROXYCHLOROQUINE 200 MG PO SCH (08:59)
[2019-10-31] MEDS: Ibuprofen 600 MG Tab PO PRN (08:59)
[2019-10-31] MEDS: Prenatal Multivitamin with Calcium/Folic Acid/Iron Tab PO SCH (08:59)
== END 2019-10-31 10:45 | disposition home or self-care (01) | DRG 560 ==
LOC: JD.NPTBJ 10:24 → JD.OB 10:26 → JD.NPTBJ 10:56 → JD.OB 10:56 → OBSVTOIN 23:03 → JD.OB 23:04
PROVIDERS: ADMIT Obstetrics & Gynecology; ATTEND Obstetrics & Gynecology
PROC: 10E0XZZ Delivery of Products of Conception, External Approach (ICD-10-PCS; principal; 2019-10-29)
PROC: 0KQM0ZZ Repair Perineum Muscle, Open Approach (ICD-10-PCS; 2019-10-29)
PROC: 3E0R3BZ Introduction of Anesthetic Agent into Spinal Canal, Percutaneous Approach (ICD-10-PCS; 2019-10-29)
DX: O69.1XX0 Labor and delivery complicated by cord around neck, with compression, not applicable or unspecified (principal); Z3A.38 38 weeks gestation of pregnancy; Z37.0 Single live birth; O70.1 Second degree perineal laceration during delivery; O99.344 Other mental disorders complicating childbirth; F32.9 Major depressive disorder, single episode, unspecified
CPT/HCPCS: 01967; 36415; 51702; 59025; 59409; 85025; 86592; 86850; 86900; 86901; A9270-GY; J2590; J3010; J3490; J7120

== ENCOUNTER 2021-03-28 21:24 | Emergency (ER) | payer BC ==
[2021-03-28 23:14] LABS: ACETAMINOPHEN 0 ug/mL (10-30)
--- NOTE | 2021-03-29 00:25 | EDM.PDOC ---
ED HPI GENERAL MEDICAL PROBLEM - General Chief Complaint: Fever Stated Complaint: FEVER Time Seen by Provider: 03/28/21 22:00 Source of Information: Reports: Patient, Old Records - History of Present Illness INITIAL COMMENTS - FREE TEXT/NARRATIVE: Patient is a 25-year-old female with a past medical history of rheumatological disease, mainly arthritis. Patient is here for chief complaint of fevers and concerns about elevated liver enzymes. Patient had a visit with her primary care physician yesterday who ordered some blood test. She was informed that her liver function tests were abnormal and she is concerned about liver failure. Symptoms have been ongoing for the past 3 days. She had a T-max at home of 101. She otherwise denies any cough, sore throat, nausea, vomiting. She does report having some right upper quadrant abdominal discomfort this morning but is not currently having this. It does not seem to be related at all with meals. No prior abdominal surgeries. Right Upper Abdomen Pain Score (Numeric/FACES): 1 - Related Data Allergies Allergy/AdvReac Type Severity Reaction Status Date / Time Sulfa (Sulfonamide Allergy Severe Hives Verified 03/28/21 21:37 Antibiotics) Home Meds: Home Meds Hydroxychloroquine [Plaquenil] 400 mg PO DAILY 11/21/18 [History] 95/Iron Fum/Folic/Dha [ + Dha Combo Pack] 1 each PO DAILY 10/29/19 [History] Ibuprofen [Motrin] 600 mg PO Q4H PRN tablet 10/31/19 [Rx] Golimumab [Simponi] 1 injection INJECT ASDIRECTED 03/28/21 [History] predniSONE [Prednisone] 15 mg PO DAILY 03/28/21 [History] Past Medical History HEENT History: Reports: Impaired Vision Cardiovascular History: Reports: None Respiratory History: Reports: Bronchitis, Recurrent Gastrointestinal History: Reports: None Genitourinary History: Reports: None DINKEY BRAKEMAN History: Reports: None Musculoskeletal History: Reports: Arthritis, RA Neurological History: Reports: None Psychiatric History: Reports: Depression Endocrine/Metabolic History: Reports: None Hematologic History: Reports: None Immunologic History: Reports: Immunosuppression Other Immunologic History: RA Oncologic (Cancer) History: Reports: None Dermatologic History: Reports: None - Infectious Disease History Infectious Disease History: Reports: None - Past Surgical History HEENT Surgical History: Reports: Naso-Sinus Surgery Female Surgical History: Reports: Other (See Below) Other Female Surgeries/Procedures: cyst removed from shoulder Social & Family History - Family History Family Medical History: No Pertinent Family History - Tobacco Use Tobacco Use Status *Q: Never Tobacco User - Caffeine Use Caffeine Use: Reports: Coffee - Recreational Drug Use Recreational Drug Use: No - Living Situation & Occupation Living situation: Reports: Single Occupation: Employed ED ROS GENERAL - Review of Systems Review Of Systems: See Below Free Text/Narrative/Comment: In addition to that documented in the HPI above, the additional ROS was obtained: Constitutional: Per HPI Eyes: Denies vision changes ENMT: Denies sore throat CV: Denies chest pain Resp: Denies SOB GI: Denies vomiting or diarrhea : Denies painful urination MSK: Denies recent trauma Skin: Denies new rashes Neuro: Denies new numbness or tingling or weakness Endocrine: Denies unexpected weight loss Heme: Denies bleeding disorders ED EXAM, GENERAL - Physical Exam Exam: See Below Free Text/Narrative:: I have reviewed the triage vital signs Const: Well nourished, well developed, appears stated age Eyes: Pupils Equal and reactive to light bilaterally, no conjunctival injection HENT: No signs of trauma or swelling, Neck supple without meningismus CV: Regular Rate Rhythm, Warm, well-perfused extremities RESP: Unlabored respiratory effort GI: soft, non-tender, non-distended, no masses MSK: No gross deformities appreciated Skin: Warm, dry. No rashes Neuro: Alert, manager human capital II-XII grossly intact. Sensation and motor function of extremities grossly intact. Psych: Appropriate mood and affect. Course - Vital Signs Last Recorded V/S: Last Vital Signs Temp 36.5 C 03/28/21 21:33 Pulse 109 H 03/28/21 21:33 Resp 16 03/28/21 21:33 BP 142/80 H 03/28/21 21:33 Pulse Ox 97 03/28/21 21:33 - Orders/Labs/Meds Labs: Laboratory Tests 03/28/21 03/28/21 03/28/21 Range/Units 22:30 22:30 22:30 WBC 5.27 (3.98-10.04) K/mm3 RBC 4.06 (3.98-5.22) M/mm3 Hgb 11.7 (11.2-15.7) gm/dl Hct 36.1 (34.1-44.9) % MCV 88.9 (79.4-94.8) fl MCH 28.8 (25.6-32.2) pg MCHC 32.4 (32.2-35.5) g/dl RDW Std Deviation 41.7 (36.4-46.3) fL Plt Count 283 (182-369) K/mm3 MPV 9.2 L (9.4-12.3) fl Neut % (Auto) 72.8 H (34.0-71.1) % Lymph % (Auto) 22.0 (19.3-51.7) % [place] % (Auto) 4.4 L (4.7-12.5) % Eos % (Auto) 0.2 L (0.7-5.8) Baso % (Auto) 0.2 (0.1-1.2) % Neut # (Auto) 3.84 (1.56-6.13) K/mm3 Lymph # (Auto) 1.16 L (1.18-3.74) K/mm3 [place] # (Auto) 0.23 L (0.24-0.36) K/mm3 Eos # (Auto) 0.01 L (0.04-0.36) K/mm3 Baso # (Auto) 0.01 (0.01-0.08) K/mm3 PT 10.8 (9.7-12.0) SECONDS INR 0.97 Sodium 138 (136-145) mEq/L Potassium 3.9 (3.5-5.1) mEq/L Chloride 106 (98-107) mEq/L Carbon Dioxide 25 (21-32) mEq/L Anion Gap 10.9 (5-15) BUN 13 (7-18) mg/dL Creatinine 0.7 (0.55-1.02) mg/dL Est Cr Clr Drug Dosing 118.43 mL/min Estimated GFR (MDRD) > 60 (>60) mL/min BUN/Creatinine Ratio 18.6 H (14-18) Glucose 119 H (70-99) mg/dL Calcium 8.3 L (8.5-10.1) mg/dL Total Bilirubin 0.2 (0.2-1.0) mg/dL AST 198 H (15-37) U/L ALT 174 H (14-59) U/L Alkaline Phosphatase 37 L (46-116) U/L Creatine Kinase 3087 H (26-192) U/L Total Protein 8.5 H (6.4-8.2) g/dl Albumin 3.2 L (3.4-5.0) g/dl Globulin 5.3 gm/dL Albumin/Globulin Ratio 0.6 L (1-2) Acetaminophen 0 L (10-30) ug/mL Departure - Departure Time of Disposition: 00:25 Disposition: Home, Self-Care 01 Clinical Impression: Fever, unknown origin, Transaminitis - Discharge Information Instructions: Fever, Adult, [id number] Referrals: Edie Acevedo PA-C [Primary Care Provider] - Forms: ED Department Discharge Sepsis Event Note (ED) - Evaluation Sepsis Screening Result: No Definite Risk - Assessment/Plan Assessment:: Patient is a 25-year-old female presenting to the emergency room with a complaint of fevers and elevated LFTs. Patient had an unremarkable ER course. Remained afebrile and nontoxic in appearance on repeat examination. Etiology of patient's symptoms and laboratory abnormalities are unclear at this time. Differential diagnosis include hepatitis infection, acetaminophen toxicity, medication reaction, sepsis, rhabdomyolysis. History is not concerning for rhabdomyolysis and her CK values have been stable without evidence of hyperkalemia. Her labs also show that patient is stable from a hepatic standpoint. She has some slight transaminitis and has pending hepatitis panel. At this point, no evidence of sepsis with no fever here, tachycardia or leukocytosis. COVID-19 test was negative yesterday and patient is vaccinated. Seems to be unlikely because as well. At this point, patient is stable and will require further work-up but this can happen as an outpatient. We discussed return precautions. Including, need for repeat testing and monitoring of her liver and CK levels. All questions were addressed and answered. Patient agrees with plan of care.
--- NOTE | 2021-03-29 09:25 | CR ---
Chest: PA and lateral views of the chest were obtained. Comparison: Prior chest x-ray of 03/03/21. Heart size and mediastinum are within normal limits. Lungs are clear with no acute parenchymal change. Bony structures show nothing acute. Impression: 1. Nothing acute is appreciated on 2 view chest x-ray. Diagnostic code #1
== END 2021-03-29 00:39 | disposition home or self-care (01) ==
LOC: JD.ED 21:24
DX: R74.01 Elevation of levels of liver transaminase levels (principal); R50.9 Fever, unspecified; M06.9 Rheumatoid arthritis, unspecified; Z88.2 Allergy status to sulfonamides; Z79.899 Other long term (current) drug therapy
CPT/HCPCS: 36415; 71046; 71046-26; 80053; 80143; 82550; 85025; 85610; 99283-25

== ENCOUNTER 2023-07-22 19:59 | Inpatient (IN) | payer BC ==
[~2023-07-22 19:59] MED LIST changes: -Bupivacaine 0.25% 10 ML SDV ONE; +Lidocaine 1% 10 ML MDV ONE
[2023-07-22] MEDS ORDERED: Lidocaine 1% 50 ML MDV INJECT PRN (20:46)
[2023-07-22] MEDS ORDERED: Nalbuphine HCl 10 MG/ 1ML Amp IVPUSH PRN (20:46)
[2023-07-22] MEDS ORDERED: Sodium Chloride 0.9% 10 ML Syringe FLUSH PRN (20:46)
[2023-07-22] MEDS ORDERED: Calcium Carbonate 500 MG Tab.Chew PO PRN (20:46)
[2023-07-22 21:04] LABS: BASOPHILS PERCENT AUTO 0.4 % (0.0-1.0); EOSINOPHILS PERCENT AUTO 0.2 % (0.0-6.0); HEMATOCRIT 36.9 % (37.0-47.0); HEMOGLOBIN 12.2 gm/dl (12.0-16.0); IMMATURE GRAN ABSOLUTE AUTO 0.08 K/mm3 (0.00-0.05); LYMPHOCYTES ABSOLUTE AUTO 1.3 K/mm3 (1.0-4.8); LYMPHOCYTES PERCENT AUTO 16.2 % (24.0-44.0); MEAN CORPUSCULAR HEMOGLOBIN 31.3 pg (28.0-32.0); MEAN CORPUSCULAR HGB CONC 33.1 g/dl (32.0-36.0); MEAN CORPUSCULAR VOLUME 94.6 fl (83.0-99.0); MONOCYTES ABSOLUTE AUTO 0.8 K/mm3 (0.0-0.8); MONOCYTES PERCENT AUTO 9.7 % (0.0-8.0); NEUTROPHILS ABSOLUTE AUTO 5.9 K/mm3 (1.8-7.7); NEUTROPHILS PERCENT AUTO 72.5 % (41.0-71.0); PLATELET COUNT,PLT 317 K/mm3 (150-400); WHITE BLOOD CELL COUNT,WBC 8.15 K/mm3 (3.9-11.3)
[2023-07-22] MEDS: Oxytocin/Lactated Ringers 30 UNIT/500 ML BAG IV SCH (22:33)
[2023-07-22] MEDS: Lactated Ringers 1,000 ML IV SCH (22:33)
[2023-07-23] MEDS: Oxytocin/Lactated Ringers 30 UNIT/500 ML BAG IV ONE (00:23)
[2023-07-23] MEDS ORDERED: ePHEDrine 50 MG/ML SDV IVPUSH PRN (01:47)
[2023-07-23] MEDS ORDERED: Phenylephrine 1% 10 MG/ML SDV IVPUSH PRN (01:47)
[2023-07-23] MEDS ORDERED: diphenhydrAMINE 50 MG/ML SDV IVPUSH PRN (01:47)
[2023-07-23] MEDS: fentaNYL 100 MCG/2 ML SDV EPIDUR PRN (02:20)
[2023-07-23] MEDS: Bupivacaine/fentaNYL/NS 100 ML Bag EPIDUR PRN (02:21)
[2023-07-23] MEDS ORDERED: fentaNYL 100 MCG/2 ML SDV ONE (08:30)
[2023-07-23] MEDS ORDERED: Citric Acid/Sodium Citrate Solution 30 ML Cup PO ONE (10:30)
[2023-07-23] MEDS ORDERED: ceFAZolin 2 GM in Sodium Chloride 0.9% 50 ML IV ONE (10:30)
[2023-07-23] MEDS ORDERED: Metoclopramide 10 MG/2 ML SDV IVPUSH ONE (10:30)
[2023-07-23] MEDS: Ondansetron 4 MG/2 ML SDV IVPUSH PRN (12:54)
[2023-07-23] MEDS ORDERED: Acetaminophen 325 MG Tab PO PRN (14:38)
[2023-07-23] MEDS: Witch Hazel Medicated Pads 40/Jar TOP PRN (15:21)
[2023-07-23] MEDS: Benzocaine/Menthol 20%-0.5% Spray 78 GM Cannister TOP PRN (15:21)
[2023-07-23] MEDS: Ibuprofen 600 MG Tab PO PRN (16:13)
[2023-07-24] MEDS: Docusate Sodium 100 MG Cap PO PRN (00:17)
[2023-07-24] MEDS ORDERED: AZATHIOPRINE 50 MG PO SCH (09:00)
[2023-07-24] MEDS: Hydroxychloroquine 200 MG Tab PO SCH (10:20)
[2023-07-24] MEDS: predniSONE 1 MG Tab PO SCH (10:21)
== END 2023-07-24 14:50 | disposition home or self-care (01) | DRG 560 ==
LOC: JD.OBCHECK 19:59 → JD.OB 20:10 → JD.OBCHECK 20:46 → OBSVTOIN 07-23 13:08 → JD.OB 07-23 13:09
PROVIDERS: ADMIT Obstetrics & Gynecology; ATTEND Obstetrics & Gynecology
PROC: 10E0XZZ Delivery of Products of Conception, External Approach (ICD-10-PCS; principal; 2023-07-23)
PROC: 10H07YZ Insertion of Other Device into Products of Conception, Via Natural or Artificial Opening (ICD-10-PCS; 2023-07-23)
PROC: 3E0R3BZ Introduction of Anesthetic Agent into Spinal Canal, Percutaneous Approach (ICD-10-PCS; 2023-07-23)
PROC: 00HU33Z Insertion of Infusion Device into Spinal Canal, Percutaneous Approach (ICD-10-PCS; 2023-07-23)
PROC: 0KQM0ZZ Repair Perineum Muscle, Open Approach (ICD-10-PCS; 2023-07-23)
DX: O42.02 Full-term premature rupture of membranes, onset of labor within 24 hours of rupture (principal); Z37.0 Single live birth; M32.9 Systemic lupus erythematosus, unspecified; O99.892 Other specified diseases and conditions complicating childbirth; O70.1 Second degree perineal laceration during delivery; Z3A.37 37 weeks gestation of pregnancy; Z88.2 Allergy status to sulfonamides; Z79.899 Other long term (current) drug therapy; Z98.890 Other specified postprocedural states
CPT/HCPCS: 36415; 51702; 59025; 59409; 85025; 86592; 86850; 86900; 86901; A9270-GY; J2405; J3010; J3490; J7120; J7999